=== PATIENT | male | born 1980 | race Caucasian/White ===

== ENCOUNTER 2018-11-20 19:14 | Emergency (ER) | payer SELFPAY ==
[2018-11-20 19:14] VITALS: BP 138/88; PULSE 92; RESP 15; TEMP 36.6; O2SAT 98; BMI 28.2
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
--- NOTE | 2018-11-20 19:35 | RAD_ITS ---
STUDY: X-RAY - LEFT ELBOW REASON FOR EXAM: Male, 38 years old. Trauma TECHNIQUE: 3 view(s) of the elbow. COMPARISON: None. FINDINGS: There is no evidence of fracture or dislocation. There are no significant degenerative changes. There are no radiodense foreign bodies. RAD/Elbow min 3 Views IMPRESSION: No fracture or dislocation. Electronically Signed: Kameron Felix, at 19:49 EDT Tel , Service support ,
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
--- NOTE | 2018-11-20 19:56 | ED.DEP ---
ED Disposition - Plan for ED Patient: Instructions: CONTUSION, Elbow, Hip Contusion Referrals: Care Physician,No Primary [Primary Care Provider] - Garrick Zimmer MD [STAFF PHYSICIAN] - 5-7 Days
[2018-11-20 20:01] VITALS: RESP 16
== END 2018-11-20 20:01 | disposition home or self-care (01) ==
LOC: ED 19:34
PROVIDERS: Emergency Provider Emergency Medicine
DX: S50.02XA Contusion of left elbow, initial encounter (principal); S70.02XA Contusion of left hip, initial encounter; V09.9XXA Pedestrian injured in unspecified transport accident, initial encounter; Y93.9 Activity, unspecified; Y92.481 Parking lot as the place of occurrence of the external cause
CPT/HCPCS: 73080; 73502; 99282